=== PATIENT | female | born 1940 | race Caucasian/White ===

== ENCOUNTER 2020-09-10 11:21 | Inpatient (IN) ==
[2020-09-13] MEDS ORDERED: Warfarin perPT PO PRN (15:07)
[2020-09-13] MEDS ORDERED: *HR* Warfarin 1 MG TABLET PO ONE (18:00)
[2020-09-14] MEDS ORDERED: Furosemide 40 MG TABLET PO SCH (09:00)
[2020-09-14] MEDS ORDERED: *HR* Warfarin 3 MG TABLET PO SCH (09:00)
[2020-09-14] MEDS ORDERED: Metoprolol XL (24 HR) Succ 25 MG TAB.ER.24H PO SCH (09:00)
[2020-09-14] MEDS ORDERED: lisinopriL 5 MG TABLET PO SCH (09:00)
[2020-09-14 09:28] LABS: INR 2.5; Prothrombin Time 28.7 Seconds (9.4-12.1)
[2020-09-14] MEDS: Cyanocobalamin (B-12) 1,000 MCG TABLET PO SCH (09:57)
[2020-09-14] MEDS: Ascorbic Acid 500 MG TABLET PO SCH (09:57)
[2020-09-14] MEDS: Cholecalciferol (D-3) 1,000 UNIT (25MCG) TABLET PO SCH (09:57)
[2020-09-14] MEDS ORDERED: *HR* Warfarin 2 MG TABLET PO ONE (18:00)
[2020-09-15 07:29] LABS: INR 2.2; Prothrombin Time 24.5 Seconds (9.4-12.1)
[2020-09-15] MEDS ORDERED: MOM Conc 10 ML UD.LIQ PO PRN (08:20)
[2020-09-15] MEDS ORDERED: Metoprolol XL (24 HR) Succ 25 MG TAB.ER.24H PO SCH (08:24)
[2020-09-15 08:50] LABS: Basophils % 0.7 %; Eosinophils # 0.3 K/mcL (0.0-0.6); Hematocrit 29.5 % (35.3-44.9); Hemoglobin 9.1 g/dL (11.5-15.4); Immature Granulocytes % 0.2 % (0-4); Lymphocytes # 0.8 K/mcL (0.6-4.6); Lymphocytes % 19.1 %; Mean Corpuscular HGB Conc 30.8 g/dL (31.6-35.5); Mean Corpuscular Hemoglobin 23.6 pg (28.0-33.3); Mean Corpuscular Volume 76.6 fL (83.0-100.0); Mean Platelet Volume 10.4 fL (9.4-12.4); Monocytes # 0.6 K/mcL (0.0-1.3); Monocytes % 15.2 %; Neutrophils # 2.4 K/mcL (1.6-8.9); Platelet Count 184 K/mcL (140-400); Red Blood Count 3.85 M/mcL (3.82-4.97); Red Cell Distribution Width 19.6 % (11.5-14.5); Segmented Neutrophils % 58.8 %; White Blood Count 4.1 K/mcL (4.3-11.1)
[2020-09-15 09:19] LABS: Alanine Aminotransferase 6 Units/L (7-52); Albumin 3.4 g/dL (3.5-5.7); Albumin/Globulin Ratio 1.4 (1.1-2.2); Alkaline Phosphatase 89 Units/L (34-104); Aspartate Amino Transferase 16 Units/L (13-39); BUN/Creatinine Ratio 21 (6-26); Blood Urea Nitrogen 19 mg/dL (8-23); Calcium 8.9 mg/dL (8.6-10.3); Carbon Dioxide 32 mEq/L (23-29); Chloride 101 mEq/L (98-107); Globulin 2.5 g/dL (2.4-3.5); Glucose 112 mg/dL (70-105); Osmolality,Calculated 291 (280-300); Potassium 4.1 mEq/L (3.5-5.1); Sodium 139 mEq/L (136-145); Total Protein 5.9 g/dL (6.4-8.9); eGFR For African Americans > 60 (> 60); eGFR For Non-African Americans > 60 (> 60)
[2020-09-15] MEDS: Cholecalciferol (D-3) 1,000 UNIT (25MCG) TABLET PO SCH (09:34)
[2020-09-15] MEDS: Sennosides/Docusate Sodium TABLET PO SCH (09:34)
[2020-09-15] MEDS: Cyanocobalamin (B-12) 1,000 MCG TABLET PO SCH (09:34)
[2020-09-15] MEDS: Furosemide 20 MG TABLET PO SCH (09:35)
[2020-09-15] MEDS: Ascorbic Acid 500 MG TABLET PO SCH (09:35)
[2020-09-15] MEDS ORDERED: *HR* Warfarin 2 MG TABLET PO ONE (18:00)
[2020-09-16 07:08] LABS: INR 2.1; Prothrombin Time 23.3 Seconds (9.4-12.1)
[2020-09-16] MEDS: Sennosides/Docusate Sodium TABLET PO SCH (07:53)
[2020-09-16] MEDS: Ascorbic Acid 500 MG TABLET PO SCH (07:53)
[2020-09-16] MEDS: Cyanocobalamin (B-12) 1,000 MCG TABLET PO SCH (07:53)
[2020-09-16] MEDS: Furosemide 20 MG TABLET PO SCH (07:53)
[2020-09-16] MEDS: Cholecalciferol (D-3) 1,000 UNIT (25MCG) TABLET PO SCH (07:53)
[2020-09-16] MEDS: Metoprolol XL (24 HR) Succ 25 MG TAB.ER.24H PO SCH (07:54)
[2020-09-16] MEDS ORDERED: *HR* Warfarin 3 MG TABLET PO ONE (18:00)
[2020-09-17 06:59] LABS: INR 2.1; Prothrombin Time 24.2 Seconds (9.4-12.1)
[2020-09-17] MEDS: Sennosides/Docusate Sodium TABLET PO SCH ×2 (09:51→19:48)
[2020-09-17] MEDS: Cyanocobalamin (B-12) 1,000 MCG TABLET PO SCH (09:52)
[2020-09-17] MEDS: Metoprolol XL (24 HR) Succ 25 MG TAB.ER.24H PO SCH (09:52)
[2020-09-17] MEDS: Furosemide 20 MG TABLET PO SCH (09:52)
[2020-09-17] MEDS: Ascorbic Acid 500 MG TABLET PO SCH (09:52)
[2020-09-17] MEDS: Cholecalciferol (D-3) 1,000 UNIT (25MCG) TABLET PO SCH (09:52)
[2020-09-17] MEDS ORDERED: *HR* Warfarin 5 MG TABLET PO ONE (18:00)
[2020-09-17] MEDS ORDERED: Mag Hydrox/Al Hydrox/Simeth 30 ML UDC PO PRN (19:18)
[2020-09-18 06:13] LABS: Alanine Aminotransferase 6 Units/L (7-52); Albumin 3.4 g/dL (3.5-5.7); Albumin/Globulin Ratio 1.3 (1.1-2.2); Alkaline Phosphatase 95 Units/L (34-104); Aspartate Amino Transferase 17 Units/L (13-39); BUN/Creatinine Ratio 20 (6-26); Bilirubin,Total 0.9 mg/dL (0.3-1.0); Blood Urea Nitrogen 17 mg/dL (8-23); Calcium 8.8 mg/dL (8.6-10.3); Carbon Dioxide 31 mEq/L (23-29); Chloride 101 mEq/L (98-107); Globulin 2.6 g/dL (2.4-3.5); Glucose 90 mg/dL (70-105); Osmolality,Calculated 287 (280-300); Potassium 3.9 mEq/L (3.5-5.1); Sodium 138 mEq/L (136-145); eGFR For African Americans > 60 (> 60); eGFR For Non-African Americans > 60 (> 60)
[2020-09-18 06:20] LABS: Prothrombin Time 23.1 Seconds (9.4-12.1)
[2020-09-18] MEDS: Cholecalciferol (D-3) 1,000 UNIT (25MCG) TABLET PO SCH (08:24)
[2020-09-18] MEDS: Cyanocobalamin (B-12) 1,000 MCG TABLET PO SCH (08:25)
[2020-09-18] MEDS: Ascorbic Acid 500 MG TABLET PO SCH (08:26)
[2020-09-18] MEDS: Furosemide 20 MG TABLET PO SCH (08:26)
[2020-09-18] MEDS: Sennosides/Docusate Sodium TABLET PO SCH ×2 (08:26→21:40)
[2020-09-18] MEDS: Metoprolol XL (24 HR) Succ 25 MG TAB.ER.24H PO SCH (08:28)
[2020-09-18] MEDS ORDERED: *HR* Warfarin 5 MG TABLET PO ONE (18:00)
[2020-09-19 08:10] LABS: INR 2.6; Prothrombin Time 29.3 Seconds (9.4-12.1)
[2020-09-19] MEDS: Cholecalciferol (D-3) 1,000 UNIT (25MCG) TABLET PO SCH (08:15)
[2020-09-19] MEDS: Furosemide 20 MG TABLET PO SCH (08:16)
[2020-09-19] MEDS: Ascorbic Acid 500 MG TABLET PO SCH (08:16)
[2020-09-19] MEDS: Metoprolol XL (24 HR) Succ 25 MG TAB.ER.24H PO SCH (08:16)
[2020-09-19] MEDS: Cyanocobalamin (B-12) 1,000 MCG TABLET PO SCH (08:17)
[2020-09-19] MEDS: Sennosides/Docusate Sodium TABLET PO SCH ×2 (08:20→20:00)
[2020-09-19] MEDS ORDERED: *HR* Warfarin 2 MG TABLET PO ONE (18:00)
[2020-09-20 07:11] LABS: INR 3.1; Prothrombin Time 34.8 Seconds (9.4-12.1)
[2020-09-20 07:39] VITALS: BP 104/62
[2020-09-20] MEDS: Metoprolol XL (24 HR) Succ 25 MG TAB.ER.24H PO SCH (08:54)
[2020-09-20] MEDS: Ascorbic Acid 500 MG TABLET PO SCH (08:54)
[2020-09-20] MEDS: Cyanocobalamin (B-12) 1,000 MCG TABLET PO SCH (08:54)
[2020-09-20] MEDS: Cholecalciferol (D-3) 1,000 UNIT (25MCG) TABLET PO SCH (08:54)
[2020-09-20] MEDS: Sennosides/Docusate Sodium TABLET PO SCH (08:55)
[2020-09-20] MEDS ORDERED: Furosemide 40 MG TABLET PO SCH (09:00)
[2020-09-20] MEDS ORDERED: *HR* Warfarin 3 MG TABLET PO ONE (18:00)
== END 2020-09-20 18:13 | disposition home health service (06) | DRG 945 ==
LOC: INPPIK 09-13 14:39
PROVIDERS: ADMIT Family Medicine; ATTEND Family Medicine

== ENCOUNTER 2021-06-05 13:31 | Inpatient (IN) ==
[2021-06-05] MEDS ORDERED: Acetaminophen 325 MG TABLET PO PRN (14:14)
[2021-06-05] MEDS ORDERED: Ipratropium/Albuterol Neb 3 ML IH PRN (16:24)
[2021-06-05] MEDS ORDERED: Warfarin perPT PO PRN (18:00)
[2021-06-05] MEDS: Budesonide/Formoterol 160/4.5 1 PUFF INH IH SCH (21:26)
[2021-06-06 07:34] LABS: Basophils % 0.6 %; Eosinophils # 0.3 K/mcL (0.0-0.6); Eosinophils % 6.7 %; Hematocrit 28.5 % (35.3-44.9); Hemoglobin 8.9 g/dL (11.5-15.4); Immature Granulocytes % 0.4 % (0-4); Lymphocytes # 0.6 K/mcL (0.6-4.6); Lymphocytes % 11.8 %; Mean Corpuscular HGB Conc 31.2 g/dL (31.6-35.5); Mean Corpuscular Hemoglobin 25.5 pg (28.0-33.3); Mean Corpuscular Volume 81.7 fL (83.0-100.0); Mean Platelet Volume 10.8 fL (9.4-12.4); Monocytes # 0.7 K/mcL (0.0-1.3); Monocytes % 14.1 %; Neutrophils # 3.2 K/mcL (1.6-8.9); Platelet Count 183 K/mcL (140-400); Red Blood Count 3.49 M/mcL (3.82-4.97); Red Cell Distribution Width 18.4 % (11.5-14.5); Segmented Neutrophils % 66.4 %; White Blood Count 4.8 K/mcL (4.3-11.1)
[2021-06-06 07:37] LABS: INR 2.7; Prothrombin Time 30.3 Seconds (9.4-12.1)
[2021-06-06] MEDS: Metoprolol XL (24 HR) Succ 25 MG TAB.ER.24H PO SCH (09:29)
[2021-06-06] MEDS: Ascorbic Acid 500 MG TABLET PO SCH (09:29)
[2021-06-06] MEDS: Lactobacillus 1 EACH CAP.SPRINK PO SCH (09:29)
[2021-06-06] MEDS: Cyanocobalamin (B-12) 1,000 MCG TABLET PO SCH (09:29)
[2021-06-06] MEDS: Furosemide 20 MG TABLET PO SCH (09:30)
[2021-06-06] MEDS: Spironolactone 25 MG TABLET PO SCH (09:30)
[2021-06-06] MEDS: Budesonide/Formoterol 160/4.5 1 PUFF INH IH SCH ×2 (10:12→21:14)
[2021-06-06 12:13] LABS: BUN/Creatinine Ratio 20 (6-26); Blood Urea Nitrogen 16 mg/dL (8-23); Carbon Dioxide 25 mEq/L (23-29); Chloride 106 mEq/L (98-107); Glucose 105 mg/dL (70-105); Osmolality,Calculated 298 (280-300); Potassium 3.9 mEq/L (3.5-5.1); Sodium 143 mEq/L (136-145); eGFR For African Americans > 60 (> 60); eGFR For Non-African Americans > 60 (> 60)
[2021-06-06] MEDS ORDERED: *HR* Warfarin 0.5 MG TABLET PO ONE (18:00)
[2021-06-06] MEDS ORDERED: Nitroglycerin 0.4 MG TAB.SUBL SL PRN (23:46)
[2021-06-07 00:53] LABS: INR 2.3; Prothrombin Time 25.6 Seconds (9.4-12.1)
[2021-06-07] MEDS ORDERED: Ketorolac 15 MG/ML VIAL IVP ONE (01:13)
[2021-06-07] MEDS: Ascorbic Acid 500 MG TABLET PO SCH (07:57)
[2021-06-07] MEDS: Cyanocobalamin (B-12) 1,000 MCG TABLET PO SCH (07:57)
[2021-06-07] MEDS: Furosemide 20 MG TABLET PO SCH (07:57)
[2021-06-07] MEDS: Spironolactone 25 MG TABLET PO SCH (07:57)
[2021-06-07] MEDS: Metoprolol XL (24 HR) Succ 25 MG TAB.ER.24H PO SCH (07:57)
[2021-06-07] MEDS: Lactobacillus 1 EACH CAP.SPRINK PO SCH (07:57)
[2021-06-07] MEDS ORDERED: Furosemide 20 MG TABLET PO STA ×2 (10:25→14:59)
[2021-06-07] MEDS: Budesonide/Formoterol 160/4.5 1 PUFF INH IH SCH ×2 (10:38→20:56)
[2021-06-07] MEDS ORDERED: *HR* Warfarin 2 MG TABLET PO ONE (18:00)
[2021-06-08 07:08] LABS: Hematocrit 27.5 % (35.3-44.9); Hemoglobin 8.6 g/dL (11.5-15.4); Mean Corpuscular HGB Conc 31.3 g/dL (31.6-35.5); Mean Corpuscular Hemoglobin 25.7 pg (28.0-33.3); Mean Corpuscular Volume 82.1 fL (83.0-100.0); Mean Platelet Volume 10.6 fL (9.4-12.4); Platelet Count 197 K/mcL (140-400); Red Blood Count 3.35 M/mcL (3.82-4.97); Red Cell Distribution Width 18.2 % (11.5-14.5); White Blood Count 5.9 K/mcL (4.3-11.1)
[2021-06-08 07:22] LABS: INR 1.9; Prothrombin Time 21.4 Seconds (9.4-12.1)
[2021-06-08 07:31] LABS: BUN/Creatinine Ratio 18 (6-26); Blood Urea Nitrogen 14 mg/dL (8-23); Carbon Dioxide 31 mEq/L (23-29); Chloride 105 mEq/L (98-107); Glucose 103 mg/dL (70-105); Osmolality,Calculated 295 (280-300); Sodium 142 mEq/L (136-145); eGFR For African Americans > 60 (> 60); eGFR For Non-African Americans > 60 (> 60)
[2021-06-08] MEDS: Metoprolol XL (24 HR) Succ 25 MG TAB.ER.24H PO SCH (08:00)
[2021-06-08] MEDS: Cyanocobalamin (B-12) 1,000 MCG TABLET PO SCH (08:00)
[2021-06-08] MEDS: Furosemide 20 MG TABLET PO SCH (08:00)
[2021-06-08] MEDS: Lactobacillus 1 EACH CAP.SPRINK PO SCH (08:00)
[2021-06-08] MEDS: Ascorbic Acid 500 MG TABLET PO SCH (08:01)
[2021-06-08] MEDS: Spironolactone 25 MG TABLET PO SCH (08:01)
[2021-06-08] MEDS: Budesonide/Formoterol 160/4.5 1 PUFF INH IH SCH ×2 (10:29→21:55)
[2021-06-08] MEDS ORDERED: *HR* Warfarin 3 MG TABLET PO ONE (18:00)
[2021-06-09] MEDS: Ondansetron ODT 4 MG TAB.RAPDIS SL PRN (03:16)
[2021-06-09 04:51] LABS: INR 1.9; Prothrombin Time 20.9 Seconds (9.4-12.1)
[2021-06-09] MEDS: Furosemide 20 MG TABLET PO SCH (09:08)
[2021-06-09] MEDS: Ascorbic Acid 500 MG TABLET PO SCH (09:08)
[2021-06-09] MEDS: Spironolactone 25 MG TABLET PO SCH (09:08)
[2021-06-09] MEDS: Metoprolol XL (24 HR) Succ 25 MG TAB.ER.24H PO SCH (09:08)
[2021-06-09] MEDS: Lactobacillus 1 EACH CAP.SPRINK PO SCH (09:08)
[2021-06-09] MEDS: Cyanocobalamin (B-12) 1,000 MCG TABLET PO SCH (09:09)
[2021-06-09] MEDS: Budesonide/Formoterol 160/4.5 1 PUFF INH IH SCH ×2 (10:02→21:57)
[2021-06-09] MEDS ORDERED: *HR* LORazepam 0.5 MG TABLET PO ONE (16:22)
[2021-06-09] MEDS ORDERED: *HR* Warfarin 3 MG TABLET PO ONE (18:00)
[2021-06-10 07:45] LABS: INR 2.2; Prothrombin Time 24.5 Seconds (9.4-12.1)
[2021-06-10] MEDS: Spironolactone 25 MG TABLET PO SCH (09:14)
[2021-06-10] MEDS: Lactobacillus 1 EACH CAP.SPRINK PO SCH (09:14)
[2021-06-10] MEDS: Ascorbic Acid 500 MG TABLET PO SCH (09:14)
[2021-06-10] MEDS: Cyanocobalamin (B-12) 1,000 MCG TABLET PO SCH (09:14)
[2021-06-10] MEDS: Furosemide 20 MG TABLET PO SCH (09:14)
[2021-06-10] MEDS: Metoprolol XL (24 HR) Succ 25 MG TAB.ER.24H PO SCH (09:17)
[2021-06-10] MEDS: Budesonide/Formoterol 160/4.5 1 PUFF INH IH SCH ×2 (09:37→21:57)
[2021-06-10] MEDS ORDERED: *HR* Warfarin 3 MG TABLET PO ONE (18:00)
[2021-06-10] MEDS: Ondansetron ODT 4 MG TAB.RAPDIS SL PRN (21:43)
[2021-06-11 07:30] LABS: INR 2.4; Prothrombin Time 26.5 Seconds (9.4-12.1)
[2021-06-11] MEDS: Ascorbic Acid 500 MG TABLET PO SCH (09:27)
[2021-06-11] MEDS: Spironolactone 25 MG TABLET PO SCH (09:27)
[2021-06-11] MEDS: Lactobacillus 1 EACH CAP.SPRINK PO SCH (09:28)
[2021-06-11] MEDS: Metoprolol XL (24 HR) Succ 25 MG TAB.ER.24H PO SCH (09:28)
[2021-06-11] MEDS: Furosemide 20 MG TABLET PO SCH (09:28)
[2021-06-11] MEDS: Cyanocobalamin (B-12) 1,000 MCG TABLET PO SCH (09:28)
[2021-06-11] MEDS: Budesonide/Formoterol 160/4.5 1 PUFF INH IH SCH ×2 (10:47→21:32)
[2021-06-11] MEDS ORDERED: Furosemide 20 MG TABLET PO ONE (12:45)
[2021-06-11] MEDS: lisinopriL 5 MG TABLET PO SCH (12:48)
[2021-06-11] MEDS ORDERED: *HR* Warfarin 3 MG TABLET PO ONE (18:00)
[2021-06-12 07:33] LABS: INR 2.4; Prothrombin Time 27.1 Seconds (9.4-12.1)
[2021-06-12] MEDS: Lactobacillus 1 EACH CAP.SPRINK PO SCH (09:54)
[2021-06-12] MEDS: Ascorbic Acid 500 MG TABLET PO SCH (09:54)
[2021-06-12] MEDS: Metoprolol XL (24 HR) Succ 25 MG TAB.ER.24H PO SCH (09:54)
[2021-06-12] MEDS: Spironolactone 25 MG TABLET PO SCH (09:55)
[2021-06-12] MEDS: Furosemide 20 MG TABLET PO SCH (09:55)
[2021-06-12] MEDS: Cyanocobalamin (B-12) 1,000 MCG TABLET PO SCH (09:55)
[2021-06-12] MEDS: lisinopriL 5 MG TABLET PO SCH (09:55)
[2021-06-12] MEDS: Budesonide/Formoterol 160/4.5 1 PUFF INH IH SCH ×2 (10:20→21:40)
[2021-06-12] MEDS ORDERED: *HR* Warfarin 3 MG TABLET PO ONE (18:00)
[2021-06-13] MEDS: Ondansetron ODT 4 MG TAB.RAPDIS SL PRN (02:29)
[2021-06-13] MEDS: Lactobacillus 1 EACH CAP.SPRINK PO SCH (08:33)
[2021-06-13] MEDS: Cyanocobalamin (B-12) 1,000 MCG TABLET PO SCH (08:33)
[2021-06-13] MEDS: Furosemide 20 MG TABLET PO SCH (08:34)
[2021-06-13] MEDS: lisinopriL 5 MG TABLET PO SCH (08:34)
[2021-06-13] MEDS: Spironolactone 25 MG TABLET PO SCH (08:34)
[2021-06-13] MEDS: Metoprolol XL (24 HR) Succ 25 MG TAB.ER.24H PO SCH (08:34)
[2021-06-13] MEDS: Ascorbic Acid 500 MG TABLET PO SCH (08:34)
[2021-06-13 09:13] LABS: INR 2.2; Prothrombin Time 24.9 Seconds (9.4-12.1)
[2021-06-13 09:20] LABS: Hematocrit 26.4 % (35.3-44.9); Hemoglobin 8.3 g/dL (11.5-15.4); Mean Corpuscular HGB Conc 31.4 g/dL (31.6-35.5); Mean Corpuscular Hemoglobin 25.6 pg (28.0-33.3); Mean Corpuscular Volume 81.5 fL (83.0-100.0); Mean Platelet Volume 10.8 fL (9.4-12.4); Platelet Count 233 K/mcL (140-400); Red Blood Count 3.24 M/mcL (3.82-4.97); Red Cell Distribution Width 17.7 % (11.5-14.5); White Blood Count 4.8 K/mcL (4.3-11.1)
[2021-06-13] MEDS: Budesonide/Formoterol 160/4.5 1 PUFF INH IH SCH ×2 (09:22→20:55)
[2021-06-13 09:23] LABS: BUN/Creatinine Ratio 26 (6-26); Blood Urea Nitrogen 23 mg/dL (8-23); Calcium 9.2 mg/dL (8.6-10.3); Carbon Dioxide 32 mEq/L (23-29); Chloride 100 mEq/L (98-107); Glucose 84 mg/dL (70-105); Osmolality,Calculated 289 (280-300); Potassium 4.3 mEq/L (3.5-5.1); Sodium 138 mEq/L (136-145); eGFR For African Americans > 60 (> 60); eGFR For Non-African Americans > 60 (> 60)
[2021-06-13] MEDS ORDERED: *HR* Warfarin 2 MG TABLET PO ONE (18:00)
[2021-06-14] MEDS: Ascorbic Acid 500 MG TABLET PO SCH (08:37)
[2021-06-14] MEDS: Lactobacillus 1 EACH CAP.SPRINK PO SCH (08:37)
[2021-06-14] MEDS: Spironolactone 25 MG TABLET PO SCH (08:37)
[2021-06-14] MEDS: Cyanocobalamin (B-12) 1,000 MCG TABLET PO SCH (08:37)
[2021-06-14] MEDS: Furosemide 20 MG TABLET PO SCH (08:38)
[2021-06-14] MEDS: lisinopriL 5 MG TABLET PO SCH (08:38)
[2021-06-14] MEDS: Metoprolol XL (24 HR) Succ 25 MG TAB.ER.24H PO SCH (08:38)
[2021-06-14 08:44] LABS: INR 2.3; Prothrombin Time 25.4 Seconds (9.4-12.1)
[2021-06-14] MEDS: Budesonide/Formoterol 160/4.5 1 PUFF INH IH SCH ×2 (09:07→21:33)
[2021-06-14] MEDS ORDERED: *HR* Warfarin 5 MG TABLET PO ONE (18:00)
[2021-06-15 08:37] LABS: INR 2.6; Prothrombin Time 28.7 Seconds (9.4-12.1)
[2021-06-15] MEDS: Ascorbic Acid 500 MG TABLET PO SCH (08:50)
[2021-06-15] MEDS: Spironolactone 25 MG TABLET PO SCH (08:50)
[2021-06-15] MEDS: Lactobacillus 1 EACH CAP.SPRINK PO SCH (08:50)
[2021-06-15] MEDS: lisinopriL 5 MG TABLET PO SCH (08:50)
[2021-06-15] MEDS: Cyanocobalamin (B-12) 1,000 MCG TABLET PO SCH (08:50)
[2021-06-15] MEDS: Metoprolol XL (24 HR) Succ 25 MG TAB.ER.24H PO SCH (08:51)
[2021-06-15] MEDS: Furosemide 20 MG TABLET PO SCH (08:51)
[2021-06-15] MEDS: Budesonide/Formoterol 160/4.5 1 PUFF INH IH SCH ×2 (09:28→21:33)
[2021-06-15] MEDS ORDERED: *HR* Warfarin 2 MG TABLET PO ONE (18:00)
[2021-06-16 07:11] LABS: Prothrombin Time 33.7 Seconds (9.4-12.1)
[2021-06-16 08:10] VITALS: BP 111/63; PULSE 60; RESP 19; TEMP 98.7; O2SAT 95
[2021-06-16] MEDS: Furosemide 20 MG TABLET PO SCH (09:33)
[2021-06-16] MEDS: Cyanocobalamin (B-12) 1,000 MCG TABLET PO SCH (09:33)
[2021-06-16] MEDS: Ascorbic Acid 500 MG TABLET PO SCH (09:33)
[2021-06-16] MEDS: lisinopriL 5 MG TABLET PO SCH (09:33)
[2021-06-16] MEDS: Spironolactone 25 MG TABLET PO SCH (09:33)
[2021-06-16] MEDS: Lactobacillus 1 EACH CAP.SPRINK PO SCH (09:34)
[2021-06-16] MEDS: Metoprolol XL (24 HR) Succ 25 MG TAB.ER.24H PO SCH (09:34)
[2021-06-16] MEDS: Budesonide/Formoterol 160/4.5 1 PUFF INH IH SCH (10:50)
[2021-06-16] MEDS ORDERED: *HR* Warfarin 3 MG TABLET PO ONE (18:00)
== END 2021-06-16 10:40 | disposition home health service (06) | DRG 556 ==
LOC: INPPIK 13:55
PROVIDERS: ADMIT Family Medicine; ATTEND Family Medicine